=== PATIENT | male | born 1985 | race Caucasian/White ===

== ENCOUNTER 2018-09-10 14:33 | Emergency (ER) | payer MEDICARE, MEDICAID ==
[~2018-09-10] VITALS: Ht 175.3 cm; Wt 81.6 kg
[~2018-09-10 14:33] MED LIST: AMPH30CA3 PO; HYDR-4354 PO
[2018-09-10] MEDS ORDERED: ALBUTEROL SULFATE 2.5 MG/3 ML NEBU ONE (15:42)
[2018-09-10] MEDS ORDERED: IPRATROPIUM BROMIDE 0.5 MG/2.5 ML NEBU ONE (15:42)
[2018-09-10] MEDS ORDERED: ALBUTEROL SULFATE 2.5 MG/3 ML NEBU NEB ONE (15:45)
[2018-09-10] MEDS ORDERED: predniSONE 10 MG TABLET PO ONE (15:45)
[2018-09-10] MEDS ORDERED: IPRATROPIUM BROMIDE 0.5 MG/2.5 ML NEBU NEB ONE (15:45)
[2018-09-10] MEDS ORDERED: predniSONE 20 MG TABLET ONE (15:57)
--- NOTE | 2018-09-10 17:10 | NUR ---
Patient discharged to home in stable conditon. Written and verbal after care instructions given. Patient verbalizes understanding of instructions.PT SAYS FEELS BETTER, NO SIGN OF DISTRES.
[2018-09-10 17:11] VITALS: BP 121/71
== END 2018-09-10 17:14 | disposition home or self-care (01) ==
LOC: ER 14:34
DX: J45.909 Unspecified asthma, uncomplicated (principal); F17.200 Nicotine dependence, unspecified, uncomplicated; Z79.891 Long term (current) use of opiate analgesic; Z79.899 Other long term (current) drug therapy
CPT/HCPCS: 71045; 94644; 99285; J7512; A4663; J3590

== ENCOUNTER 2020-01-14 23:42 | Emergency (ER) | payer MEDICARE, OTHER ==
[~2020-01-14] VITALS: Ht 175.3 cm; Wt 95.3 kg
--- NOTE | 2020-01-15 00:41 | NUR ---
Dr. Boss at bedside for MSE.
--- NOTE | 2020-01-15 00:53 | NUR ---
Patient discharged to home in stable conditon. Written and verbal after care instructions given. Patient verbalizes understanding of instructions. Pt ambulated out of ER with steady gait, no acute signs of distress, VSS, all belongings taken.
[2020-01-15 00:54] VITALS: BP 115/86
== END 2020-01-15 00:54 | disposition home or self-care (01) ==
LOC: ER 23:47
DX: F11.23 Opioid dependence with withdrawal (principal); R11.10 Vomiting, unspecified; R19.7 Diarrhea, unspecified; F31.9 Bipolar disorder, unspecified; F17.200 Nicotine dependence, unspecified, uncomplicated; Z79.899 Other long term (current) drug therapy
CPT/HCPCS: A4663

== ENCOUNTER 2020-01-16 08:22 | Emergency (ER) | payer MEDICARE, OTHER ==
[~2020-01-16] VITALS: Ht 175.3 cm; Wt 90.7 kg
--- NOTE | 2020-01-16 08:26 | NUR ---
Dr Antonio at the bedside for MSE.
[2020-01-16] MEDS ORDERED: ALBUTEROL SULFATE 2.5 MG/3 ML NEBU NEB ONE (08:30)
[2020-01-16] MEDS ORDERED: methylPREDNISolone SOD SUCC 125 MG/2 ML VIAL IV ONE (08:30)
[2020-01-16] MEDS ORDERED: IV NORMAL SALINE 1000 ML BAG IV ONE (08:30)
[2020-01-16] MEDS ORDERED: IPRATROPIUM BROMIDE 0.5 MG/2.5 ML NEBU NEB ONE (08:30)
[2020-01-16] MEDS ORDERED: ALBUTEROL SULFATE 2.5 MG/3 ML NEBU ONE (08:34)
[2020-01-16] MEDS ORDERED: IPRATROPIUM BROMIDE 0.5 MG/2.5 ML NEBU ONE (08:34)
[2020-01-16] MEDS ORDERED: methylPREDNISolone SOD SUCC 125 MG/2 ML VIAL ONE (08:38)
[2020-01-16] MEDS ORDERED: ONDANSETRON 4 MG/2 ML VIAL ONE (08:40)
[2020-01-16] MEDS ORDERED: ONDANSETRON 4 MG/2 ML VIAL IV ONE (08:45)
[2020-01-16 09:07] LABS: BASOPHILS % (AUTO) 0.5 % (0.0-2.0); HEMATOCRIT 43.5 % (36.7-47.1); HEMOGLOBIN 13.6 g/dL (12.5-16.3); LYMPHOCYTES # (AUTO) 1.9 K/uL (20.0-40.0); LYMPHOCYTES % (AUTO) 20.2 % (20.5-51.5); MEAN CORPUSCULAR HEMOGLOBIN 21.1 uug (23.8-33.4); MEAN CORPUSCULAR HGB CONC 31 g/dL (32.5-36.3); MEAN CORPUSCULAR VOLUME 67.5 fL (73.0-96.2); MONOCYTES # (AUTO) 0.5 K/uL (2.0-10.0); NEUTROPHILS # (AUTO) 6.8 K/uL (1.8-8.9); NEUTROPHILS % (AUTO) 74.3 % (38.5-71.5); PLATELET COUNT (AUTO) 313 K/uL (152-348); RED BLOOD CELL COUNT(AUTO) 6.45 MIL/uL (4.06-5.63); WHITE BLOOD COUNT (AUTO) 9.2 K/uL (3.6-10.2)
[2020-01-16] MEDS ORDERED: CEFTRIAXONE 1 G in IV DEXTROSE 5% 50 ML IV ONE (09:30)
[2020-01-16] MEDS ORDERED: CEFTRIAXONE 1 G VIAL ONE (09:35)
[2020-01-16] MEDS ORDERED: AZITHROMYCIN 500 MG VIAL IV ONE (09:35)
[2020-01-16 09:42] LABS: LYMPHOCYTES % (MANUAL) 38 % (20-40); MONOCYTES % (MANUAL) 8 % (2-10); NEUTROPHILS % (MANUAL) 54 % (42-75)
[2020-01-16] MEDS: AZITHROMYCIN 250 MG TABLET PO ONE ×2 (10:03→10:06)
--- NOTE | 2020-01-16 10:08 | NUR ---
Pt is resting in bed, states feeling better. Room air 02 sat improved to 97%.
[2020-01-16] MEDS ORDERED: AZITHROMYCIN IV 500 MG in IV DEXTROSE 5% 250 ML IV ONE (10:15)
[2020-01-16 10:32] VITALS: BP 122/61
--- NOTE | 2020-01-16 10:33 | NUR ---
IV removed. Catheter intact and site benign. Pressure and 4x4 gauze applied to site. No bleeding noted.
--- NOTE | 2020-01-16 10:33 | NUR ---
Patient discharged to home in stable conditon. Written and verbal after care instructions given. Patient verbalizes understanding of instructions.
== END 2020-01-16 10:33 | disposition home or self-care (01) ==
LOC: ER 08:22
DX: J18.9 Pneumonia, unspecified organism (principal); J45.909 Unspecified asthma, uncomplicated; F31.9 Bipolar disorder, unspecified; F17.200 Nicotine dependence, unspecified, uncomplicated; Z79.899 Other long term (current) drug therapy
CPT/HCPCS: 36415; 71045; 80048; 84484; 85007; 85025; 87400; 93005; 94640; 96365; 96367; 96375; 99285; J0456; J0696; J2405; J2930; 70030-TC; A4663; J3490; J3590; J7030; J7050

== ENCOUNTER 2023-06-26 08:05 | Inpatient (IN) | payer MEDICARE, OTHER ==
[~2023-06-26] VITALS: Ht 175.3 cm; Wt 104.3 kg
[2023-06-26] VITALS (9 sets, daily range): BP systolic 132–140; BP diastolic 74–89; TEMP 97.7–98.4; O2SAT 4–100
[2023-06-26] MEDS ORDERED: methylPREDNISolone SOD SUCC 125 MG/2 ML VIAL IV ONE (08:45)
[2023-06-26] MEDS ORDERED: ALBUTEROL SULFATE 2.5 MG/3 ML NEBU ONE ×2 (08:45→09:54)
[2023-06-26] MEDS ORDERED: ALBUTEROL SULFATE 2.5 MG/3 ML NEBU NEB ONE ×2 (08:45→10:00)
[2023-06-26] MEDS ORDERED: IPRATROPIUM BROMIDE 0.5 MG/2.5 ML NEBU NEB ONE ×2 (08:45→10:00)
[2023-06-26] MEDS ORDERED: IPRATROPIUM BROMIDE 0.5 MG/2.5 ML NEBU ONE ×2 (08:45→09:54)
[2023-06-26 08:49] LABS: ABG BASE EXCESS 4.7 mmol/L; ABG HCO3 29.5 mmol/L; ABG PCO2 44.4 mmHg (35.0-45.0); ABG SITE RIGHT RADIAL; ABG TOTAL HEMOGLOBIN 11.9 G/dL (13.5-18.0); COHb 0.4 % (0.5-1.5); MetHb 0.2 % (0.0-1.5); O2Hb 93.2 % (94.0-97.0)
[2023-06-26] MEDS ORDERED: methylPREDNISolone SOD SUCC 125 MG/2 ML VIAL ONE (09:00)
[2023-06-26 09:23] LABS: BASOPHILS # (AUTO) 0.1 K/UL (0.0-0.2); BASOPHILS % (AUTO) 1.6 % (0.0-2.0); HEMATOCRIT 36.3 % (36.7-47.1); LYMPHOCYTES # (AUTO) 0.7 K/uL (0.8-4.8); LYMPHOCYTES % (AUTO) 8.4 % (20.5-51.5); MEAN CORPUSCULAR HEMOGLOBIN 20.5 uug (23.8-33.4); MEAN CORPUSCULAR HGB CONC 30 g/dL (32.5-36.3); MEAN CORPUSCULAR VOLUME 67.3 fL (73.0-96.2); MONOCYTES # (AUTO) 0.8 K/uL (0.1-1.30); NEUTROPHILS # (AUTO) 6.7 K/uL (1.8-8.9); PLATELET COUNT (AUTO) 314 K/uL (152-348); RED BLOOD CELL COUNT(AUTO) 5.39 MIL/uL (4.06-5.63); RED CELL DISTRIBUTION WIDTH 18.6 % (12.1-16.2); WHITE BLOOD COUNT (AUTO) 8.4 K/uL (3.6-10.2)
[2023-06-26 09:30] LABS: DIFFERENTIAL COMMENT 1
[2023-06-26 09:37] LABS: CALCIUM 8.6 mg/dL (8.5-10.1); CARBON DIOXIDE 30 mmol/L (21-32); CHLORIDE 103 mmol/L (98-107); CREATININE 0.9 mg/dL (0.6-1.3); GLUCOSE 119 mg/dL (74-106); POTASSIUM 4.8 mmol/L (3.5-5.1); SODIUM SERUM 139 mmol/L (136-145); UREA NITROGEN, BLOOD 11 mg/dL (7-18)
[2023-06-26] MEDS ORDERED: AMPH30TA3 PO (09:48)
[2023-06-26] MEDS ORDERED: HYDR-3980 PO (09:48)
[2023-06-26 09:50] LABS: ALANINE AMINOTRANSFERASE 79 U/L (16-63); ALBUMIN 3.5 g/dL (3.4-5.0); ALKALINE PHOSPHATASE 103 U/L (50-136); ASPARTATE AMINOTRANSFERASE 33 U/L (15-37); BILIRUBIN,DIRECT 0.2 mg/dL (0.0-0.2); BILIRUBIN,TOTAL 0.3 mg/dL (0.2-1.0); NT-PRO BNP 89 pg/mL (0-125); TOTAL PROTEIN, SERUM 7.6 g/dL (6.4-8.2)
[2023-06-26] MEDS ORDERED: HYDROCODONE/APAP 10-325 MG TABLET PO PRN (12:45)
[2023-06-26] MEDS ORDERED: ONDANSETRON 4 MG/2 ML VIAL IV PRN (12:45)
[2023-06-26] MEDS ORDERED: ACETAMINOPHEN 325 MG TABLET PO PRN (12:45)
[2023-06-26] MEDS: methylPREDNISolone SOD SUCC 40 MG/ML VIAL IV SCH ×2 (15:09→22:47)
[2023-06-26] MEDS: REMEDY ESSENTIAL ZINC PASTE 113 GM TOP SCH ×2 (17:13→21:10)
[2023-06-26] MEDS ORDERED: FLUV50TA3 PO (17:38)
[2023-06-26] MEDS ORDERED: buprenorphine SL (17:38)
[2023-06-26] MEDS ORDERED: METF-440 PO (17:38)
[2023-06-26] MEDS ORDERED: RISP2TAB85 PO (17:38)
[2023-06-26] MEDS ORDERED: PROP80CA51 PO (17:38)
[2023-06-26] MEDS ORDERED: CLOZ100T32 PO (17:38)
[2023-06-26] MEDS ORDERED: CLOZAPINE 100 MG TABLET PO SCH (21:00)
[2023-06-26] MEDS ORDERED: FLUVOXAMINE MALEATE 50 MG TABLET PO SCH (21:00)
[2023-06-26] MEDS ORDERED: PROPRANOLOL HCL 40 MG TABLET PO SCH (21:00)
[2023-06-26] MEDS: LEVALBUTEROL HCL NEB 0.63 MG/3 ML NEBU NEB PRN (21:03)
[2023-06-26] MEDS: METFORMIN HCL 500 MG TABLET PO SCH (21:10)
[2023-06-26] MEDS: risperiDONE 2 MG TABLET PO SCH (21:10)
[2023-06-26] MEDS: BUPRENORPHINE HCL 2 MG TAB.SUBL SL SCH (21:16)
[2023-06-27] VITALS (12 sets, daily range): BP systolic 107–148; BP diastolic 73–92; TEMP 97.1–97.8; O2SAT 20–99
[2023-06-27] MEDS: methylPREDNISolone SOD SUCC 40 MG/ML VIAL IV SCH ×2 (06:23→21:19)
[2023-06-27] MEDS: PANTOPRAZOLE SODIUM 40 MG TABLET.DR PO SCH (06:23)
[2023-06-27 06:33] LABS: BASOPHILS % (AUTO) 0.2 % (0.0-2.0); HEMATOCRIT 34.5 % (36.7-47.1); HEMOGLOBIN 10.7 g/dL (12.5-16.3); LYMPHOCYTES % (AUTO) 9.1 % (20.5-51.5); MEAN CORPUSCULAR HEMOGLOBIN 20.7 uug (23.8-33.4); MEAN CORPUSCULAR HGB CONC 31 g/dL (32.5-36.3); MEAN CORPUSCULAR VOLUME 66.9 fL (73.0-96.2); MONOCYTES # (AUTO) 0.3 K/uL (0.1-1.30); MONOCYTES % (AUTO) 2.7 % (0.0-11.0); NEUTROPHILS # (AUTO) 9.3 K/uL (1.8-8.9); PLATELET COUNT (AUTO) 334 K/uL (152-348); RED BLOOD CELL COUNT(AUTO) 5.17 MIL/uL (4.06-5.63); RED CELL DISTRIBUTION WIDTH 18.5 % (12.1-16.2); WHITE BLOOD COUNT (AUTO) 10.5 K/uL (3.6-10.2)
[2023-06-27] MEDS: LEVALBUTEROL HCL NEB 0.63 MG/3 ML NEBU NEB PRN ×2 (06:34→13:41)
[2023-06-27 06:47] LABS: DIFFERENTIAL COMMENT 1
[2023-06-27 07:04] LABS: THYROID STIMULATING HORMONE 0.091 mIU/mL (0.358-3.740)
[2023-06-27 07:13] LABS: ALBUMIN 3.4 g/dL (3.4-5.0); BILIRUBIN,TOTAL 0.2 mg/dL (0.2-1.0); CALCIUM 8.7 mg/dL (8.5-10.1); CREATININE 0.9 mg/dL (0.6-1.3); PHOSPHOROUS 2.8 mg/dL (2.5-4.9); TOTAL PROTEIN, SERUM 7.7 g/dL (6.4-8.2)
[2023-06-27] MEDS: NICOTINE 14 MG/24HR PATCH TD SCH (08:52)
[2023-06-27] MEDS: METFORMIN HCL 500 MG TABLET PO SCH ×2 (08:53→17:36)
[2023-06-27 08:55] LABS: IRON, SERUM 26 ug/dL (50-175)
[2023-06-27] MEDS: REMEDY ESSENTIAL ZINC PASTE 113 GM TOP SCH ×2 (08:55→21:21)
[2023-06-27] MEDS: BUPRENORPHINE HCL 2 MG TAB.SUBL SL SCH ×2 (08:55→17:35)
[2023-06-27] MEDS: INDERAL 80 MG PO SCH (08:55)
[2023-06-27] MEDS ORDERED: AMPHET ASP PO SCH (09:00)
[2023-06-27] MEDS ORDERED: AMPHET PO SCH (09:00)
[2023-06-27] MEDS ORDERED: [UNRECOGNIZED DRUG - OTHER] PO SCH (09:00)
[2023-06-27] MEDS ORDERED: D AMPHET PO SCH (09:00)
[2023-06-27] MEDS: IPRATROPIUM BROMIDE 0.5 MG/2.5 ML NEBU NEB SCH ×2 (15:30→19:56)
[2023-06-27] MEDS: ALBUTEROL SULFATE 2.5 MG/3 ML NEBU NEB SCH ×2 (15:30→19:56)
[2023-06-27] MEDS ORDERED: CLOZAPINE 100 MG TABLET PO SCH (21:00)
[2023-06-27] MEDS: risperiDONE 2 MG TABLET PO SCH (21:19)
[2023-06-28] VITALS (7 sets, daily range): BP systolic 105–127; BP diastolic 58–81; TEMP 97.9–98; O2SAT 98–100
[2023-06-28] MEDS: PANTOPRAZOLE SODIUM 40 MG TABLET.DR PO SCH (06:04)
[2023-06-28 06:43] LABS: HEMOGLOBIN 9.6 g/dL (12.5-16.3); LYMPHOCYTES # (AUTO) 0.7 K/uL (0.8-4.8); LYMPHOCYTES % (AUTO) 6.7 % (20.5-51.5); MEAN CORPUSCULAR HGB CONC 30 g/dL (32.5-36.3); MEAN CORPUSCULAR VOLUME 66.9 fL (73.0-96.2); MONOCYTES # (AUTO) 0.5 K/uL (0.1-1.30); MONOCYTES % (AUTO) 4.6 % (0.0-11.0); NEUTROPHILS # (AUTO) 9.8 K/uL (1.8-8.9); NEUTROPHILS % (AUTO) 88.7 % (38.5-71.5); PLATELET COUNT (AUTO) 329 K/uL (152-348); RED BLOOD CELL COUNT(AUTO) 4.78 MIL/uL (4.06-5.63); RED CELL DISTRIBUTION WIDTH 18.7 % (12.1-16.2)
[2023-06-28 06:54] LABS: CALCIUM 8.1 mg/dL (8.5-10.1); CREATININE 0.7 mg/dL (0.6-1.3); POTASSIUM 4.4 mmol/L (3.5-5.1)
[2023-06-28 06:59] LABS: DIFFERENTIAL COMMENT 1
[2023-06-28] MEDS ORDERED: ALBUTEROL SULFATE 1.25 MG/3 ML NEBU NEB PRN (07:30)
[2023-06-28] MEDS: ALBUTEROL SULFATE 2.5 MG/3 ML NEBU NEB SCH ×2 (07:49→11:13)
[2023-06-28] MEDS: IPRATROPIUM BROMIDE 0.5 MG/2.5 ML NEBU NEB SCH ×2 (07:49→11:13)
[2023-06-28] MEDS ORDERED: ALBU8.5H8 IH (08:29)
[2023-06-28] MEDS ORDERED: METH4TAB3 PO (08:29)
[2023-06-28] MEDS ORDERED: FERR325T28 PO (08:35)
[2023-06-28] MEDS: methylPREDNISolone SOD SUCC 40 MG/ML VIAL IV SCH (08:50)
[2023-06-28] MEDS: NICOTINE 14 MG/24HR PATCH TD SCH (08:51)
[2023-06-28] MEDS: INDERAL 80 MG PO SCH (08:51)
[2023-06-28] MEDS: BUPRENORPHINE HCL 2 MG TAB.SUBL SL SCH (08:51)
[2023-06-28] MEDS: METFORMIN HCL 500 MG TABLET PO SCH (08:51)
[2023-06-28] MEDS: REMEDY ESSENTIAL ZINC PASTE 113 GM TOP SCH (08:53)
[2023-06-28] MEDS ORDERED: FERROUS SULFATE 325 MG TABEC PO SCH (09:00)
[2023-06-28] MEDS ORDERED: FLUVOXAMINE MALEATE 50 MG TABLET PO SCH (09:00)
== END 2023-06-28 11:45 | disposition home or self-care (01) | DRG 202 ==
LOC: ER 08:05 → TELE3 12:10
PROVIDERS: ADMIT Internal Medicine; ATTEND Nurse Practitioner Acute Care
DX: J45.21 Mild intermittent asthma with (acute) exacerbation (principal); J96.01 Acute respiratory failure with hypoxia; Z20.822 Contact with and (suspected) exposure to COVID-19; Z68.34 Body mass index [BMI] 34.0-34.9, adult; D50.9 Iron deficiency anemia, unspecified; Z59.00 Homelessness unspecified; Z86.711 Personal history of pulmonary embolism; F17.210 Nicotine dependence, cigarettes, uncomplicated; G47.33 Obstructive sleep apnea (adult) (pediatric); E11.9 Type 2 diabetes mellitus without complications; Z71.6 Tobacco abuse counseling; Z71.3 Dietary counseling and surveillance; Z79.84 Long term (current) use of oral hypoglycemic drugs; B36.9 Superficial mycosis, unspecified; F25.0 Schizoaffective disorder, bipolar type; B34.9 Viral infection, unspecified; E66.9 Obesity, unspecified; Z79.899 Other long term (current) drug therapy; K50.90 Crohn's disease, unspecified, without complications
CPT/HCPCS: 36415; 36600; 71045; 83550; 83605; 83735; 84100; 84443; 84484; 85025; 87040; 93005; 94640; 94760; A4663; G0378; J2920; J2930; J3590; J7614

== ENCOUNTER 2023-09-07 06:34 | Inpatient (IN) | payer MEDICARE, OTHER ==
[2023-09-07] VITALS (7 sets, daily range): BP systolic 111–133; BP diastolic 73–84; TEMP 97.8–98.9; O2SAT 95–98
[~2023-09-07] VITALS: Ht 175.3 cm; Wt 99.8 kg
[~2023-09-07 06:34] MED LIST changes: +ALBU8.5H8 IH; -AMPH30CA3 PO; +CLOZ100T32 PO; +FERR325T28 PO; +FLUV50TA3 PO; +HYDR-3980 PO; -HYDR-4354 PO; +METF-440 PO; +METH4TAB3 PO; +PROP80CA51 PO; +RISP2TAB85 PO; +buprenorphine SL
[2023-09-07] MEDS ORDERED: methylPREDNISolone SOD SUCC 125 MG/2 ML VIAL IV ONE (07:15)
[2023-09-07] MEDS ORDERED: IPRATROPIUM BROMIDE 0.5 MG/2.5 ML NEBU NEB ONE (07:15)
[2023-09-07] MEDS ORDERED: IV NORMAL SALINE 1000 ML BAG IV ONE ×2 (07:15→08:15)
[2023-09-07] MEDS ORDERED: ALBUTEROL SULFATE 2.5 MG/3 ML NEBU NEB ONE (07:15)
[2023-09-07] MEDS ORDERED: MAGNESIUM SULFATE 2 GM in IV DEXTROSE 5% 100 ML IV ONE (07:15)
[2023-09-07] MEDS ORDERED: ALBUTEROL SULFATE 2.5 MG/3 ML NEBU ONE (07:22)
[2023-09-07] MEDS ORDERED: IPRATROPIUM BROMIDE 0.5 MG/2.5 ML NEBU ONE (07:22)
[2023-09-07] MEDS ORDERED: MAGNESIUM SULFATE/D5W 100 ML ONE (07:30)
[2023-09-07] MEDS ORDERED: methylPREDNISolone SOD SUCC 125 MG/2 ML VIAL ONE (07:30)
[2023-09-07 07:34] LABS: BASOPHILS % (AUTO) 0.3 % (0.0-2.0); HEMATOCRIT 35.8 % (36.7-47.1); HEMOGLOBIN 10.8 g/dL (12.5-16.3); LYMPHOCYTES # (AUTO) 0.6 K/uL (0.8-4.8); LYMPHOCYTES % (AUTO) 9.2 % (20.5-51.5); MEAN CORPUSCULAR HEMOGLOBIN 19.5 uug (23.8-33.4); MEAN CORPUSCULAR HGB CONC 30 g/dL (32.5-36.3); MEAN CORPUSCULAR VOLUME 64.7 fL (73.0-96.2); MONOCYTES # (AUTO) 0.2 K/uL (0.1-1.30); MONOCYTES % (AUTO) 3.5 % (0.0-11.0); NEUTROPHILS # (AUTO) 6.1 K/uL (1.8-8.9); PLATELET COUNT (AUTO) 447 K/uL (152-348); RED BLOOD CELL COUNT(AUTO) 5.54 MIL/uL (4.06-5.63); WHITE BLOOD COUNT (AUTO) 7.1 K/uL (3.6-10.2)
[2023-09-07 07:47] LABS: DIFFERENTIAL COMMENT 1
[2023-09-07 07:50] LABS: CALCIUM 9.1 mg/dL (8.5-10.1); CARBON DIOXIDE 27 mmol/L (21-32); CHLORIDE 102 mmol/L (98-107); GLUCOSE 133 mg/dL (74-106); POTASSIUM 4.5 mmol/L (3.5-5.1); SODIUM SERUM 139 mmol/L (136-145); UREA NITROGEN, BLOOD 9 mg/dL (7-18)
[2023-09-07 07:52] LABS: ABG BASE EXCESS 0.7 mmol/L; ABG HCO3 25.7 mmol/L; ABG PCO2 42.4 mmHg (35.0-45.0); ABG PO2 90.7 mmHg (75.0-100.0); ABG SITE RIGHT RADIAL; ABG TOTAL HEMOGLOBIN 12.2 G/dL (13.5-18.0); COHb 0.7 % (0.5-1.5); MetHb 0.1 % (0.0-1.5); O2Hb 96.5 % (94.0-97.0)
[2023-09-07 07:58] LABS: LACTIC ACID 2.9 mmol/L (0.4-2.0)
[2023-09-07 08:03] LABS: ALANINE AMINOTRANSFERASE 71 U/L (16-63); ALBUMIN 3.4 g/dL (3.4-5.0); ALKALINE PHOSPHATASE 88 U/L (50-136); ASPARTATE AMINOTRANSFERASE 33 U/L (15-37); BILIRUBIN,DIRECT 0.1 mg/dL (0.0-0.2); BILIRUBIN,TOTAL 0.4 mg/dL (0.2-1.0); NT-PRO BNP 75 pg/mL (0-125); TOTAL PROTEIN, SERUM 7.2 g/dL (6.4-8.2)
[2023-09-07] MEDS ORDERED: AZITHROMYCIN 250 MG TABLET PO ONE (08:15)
[2023-09-07] MEDS ORDERED: CEFTRIAXONE 1 G in IV DEXTROSE 5% 50 ML IV ONE (08:15)
[2023-09-07] MEDS ORDERED: CEFTRIAXONE /D5W 50ML IVPB **ER PYXIS IV ONE (08:44)
[2023-09-07] MEDS ORDERED: AZITHROMYCIN 250 MG TABLET ONE (08:44)
[2023-09-07] MEDS ORDERED: IV NORMAL SALINE 250 ML IV ONE (09:19)
[2023-09-07] MEDS ORDERED: SWABABLE VALVE TRANSFER SET EA MC ONE (09:19)
[2023-09-07] MEDS ORDERED: IOHEXOL 350 100 ML INFUS..BTL ONE (09:19)
[2023-09-07] MEDS ORDERED: MAGNESIUM HYDROXIDE 30 ML LIQUID UDC PO PRN (12:15)
[2023-09-07] MEDS ORDERED: ONDANSETRON 4 MG/2 ML VIAL IV PRN (12:15)
[2023-09-07] MEDS ORDERED: ALBUTEROL SULFATE 2.5 MG/ 0.5 ML NEBU NEB PRN (12:15)
[2023-09-07] MEDS ORDERED: ACETAMINOPHEN 325 MG TABLET PO PRN (12:15)
[2023-09-07] MEDS ORDERED: REMEDY ESSENTIAL ZINC PASTE 113 GM TP PRN (12:15)
[2023-09-07] MEDS ORDERED: IPRATROPIUM BROMIDE 0.5 MG/2.5 ML NEBU NEB PRN (12:15)
[2023-09-07] MEDS: methylPREDNISolone SOD SUCC 40 MG/ML VIAL IV SCH ×2 (14:07→21:04)
[2023-09-07] MEDS: ENOXAPARIN SODIUM 40 MG/0.4 ML DISP.SYRIN SQ SCH (14:07)
[2023-09-07] MEDS ORDERED: FLUO40CA49 PO (15:35)
[2023-09-07] MEDS: NICOTINE 21 MG/24HR PATCH TD SCH (15:45)
[2023-09-08] VITALS (8 sets, daily range): BP systolic 102–135; BP diastolic 55–85; TEMP 97.5–98.3; O2SAT 94–99
[2023-09-08] MEDS: methylPREDNISolone SOD SUCC 40 MG/ML VIAL IV SCH ×3 (05:19→23:32)
[2023-09-08 06:52] LABS: HEMATOCRIT 32.3 % (36.7-47.1); HEMOGLOBIN 9.6 g/dL (12.5-16.3); LYMPHOCYTES # (AUTO) 0.6 K/uL (0.8-4.8); LYMPHOCYTES % (AUTO) 4.3 % (20.5-51.5); MEAN CORPUSCULAR HEMOGLOBIN 18.9 uug (23.8-33.4); MEAN CORPUSCULAR HGB CONC 30 g/dL (32.5-36.3); MEAN CORPUSCULAR VOLUME 63.9 fL (73.0-96.2); MONOCYTES # (AUTO) 0.4 K/uL (0.1-1.30); MONOCYTES % (AUTO) 2.6 % (0.0-11.0); NEUTROPHILS # (AUTO) 13.5 K/uL (1.8-8.9); NEUTROPHILS % (AUTO) 93.1 % (38.5-71.5); PLATELET COUNT (AUTO) 373 K/uL (152-348); RED BLOOD CELL COUNT(AUTO) 5.05 MIL/uL (4.06-5.63); RED CELL DISTRIBUTION WIDTH 17.8 % (12.1-16.2); WHITE BLOOD COUNT (AUTO) 14.5 K/uL (3.6-10.2)
[2023-09-08 07:06] LABS: DIFFERENTIAL COMMENT 1
[2023-09-08 07:29] LABS: ALBUMIN 3.1 g/dL (3.4-5.0); BILIRUBIN,TOTAL 0.3 mg/dL (0.2-1.0); CREATININE 0.8 mg/dL (0.6-1.3); MAGNESIUM 2.3 mg/dL (1.8-2.4); PHOSPHOROUS 2.6 mg/dL (2.5-4.9); POTASSIUM 3.9 mmol/L (3.5-5.1); TOTAL PROTEIN, SERUM 7.2 g/dL (6.4-8.2)
[2023-09-08] MEDS: NICOTINE 21 MG/24HR PATCH TD SCH (08:31)
[2023-09-08] MEDS: AZITHROMYCIN IV 500 MG in IV DEXTROSE 5% 250 ML IV SCH (08:32)
[2023-09-08] MEDS: PROTEIN SUPPLEMENT (PROSTAT) 30 ML LIQUID PO SCH ×2 (08:33→17:01)
[2023-09-08] MEDS: CEFTRIAXONE 1 G in IV DEXTROSE 5% 50 ML IV SCH (10:12)
[2023-09-08 11:24] LABS: BAND % (MANUAL) 6 % (0-10); LYMPHOCYTES % (MANUAL) 4 % (20-40); MONOCYTES % (MANUAL) 2 % (2-10); NEUTROPHILS % (MANUAL) 88 % (42-75); PLATELET ESTIMATE ADEQUATE
[2023-09-08 11:25] LABS: ANISOCYTOSIS 1+; HYPOCHROMASIA 2+
[2023-09-08] MEDS: ENOXAPARIN SODIUM 40 MG/0.4 ML DISP.SYRIN SQ SCH (12:31)
[2023-09-08] MEDS: BUPRENORPHINE HCL 2 MG TAB.SUBL SL SCH ×3 (13:00→17:36)
[2023-09-08] MEDS: FLUVOXAMINE MALEATE 50 MG TABLET PO SCH (16:15)
[2023-09-08] MEDS: FERROUS SULFATE 325 MG TABEC PO SCH (16:15)
[2023-09-08] MEDS ORDERED: risperiDONE 2 MG TABLET PO SCH (21:00)
[2023-09-08] MEDS ORDERED: CLOZAPINE 100 MG TABLET PO SCH (21:00)
[2023-09-09 04:05] VITALS: BP 99/64; TEMP 96.8; O2SAT 98
[2023-09-09 04:11] VITALS: O2SAT 98
[2023-09-09] MEDS: methylPREDNISolone SOD SUCC 40 MG/ML VIAL IV SCH (06:12)
[2023-09-09] MEDS ORDERED: METFORMIN HCL 500 MG TABLET PO SCH (08:00)
[2023-09-09 08:46] VITALS: BP 133/77
[2023-09-09] MEDS: FERROUS SULFATE 325 MG TABEC PO SCH (08:46)
[2023-09-09] MEDS: BUPRENORPHINE HCL 2 MG TAB.SUBL SL SCH (08:46)
[2023-09-09] MEDS: NICOTINE 21 MG/24HR PATCH TD SCH (08:47)
[2023-09-09] MEDS: FLUVOXAMINE MALEATE 50 MG TABLET PO SCH (08:47)
[2023-09-09] MEDS: PROTEIN SUPPLEMENT (PROSTAT) 30 ML LIQUID PO SCH (08:47)
[2023-09-09] MEDS ORDERED: PROPRANOLOL HCL 40 MG TABLET PO SCH ×2 (09:00)
[2023-09-09] MEDS ORDERED: FLUOXETINE HCL 20 MG CAPSULE PO SCH (09:00)
[2023-09-09] MEDS ORDERED: PROPRANOLOL LA 80 MG CAP.SA.24H PO SCH ×2 (09:00)
[2023-09-09] MEDS ORDERED: AMOX-430 PO (09:07)
[2023-09-09] MEDS ORDERED: AZIT500T4 PO (09:07)
[2023-09-09] MEDS ORDERED: METH4TAB3 PO (09:07)
[2023-09-09] MEDS ORDERED: FLUT1BLS4 IH (09:07)
[2023-09-09] MEDS: AZITHROMYCIN IV 500 MG in IV DEXTROSE 5% 250 ML IV SCH (09:38)
[2023-09-09] MEDS: CEFTRIAXONE 1 G in IV DEXTROSE 5% 50 ML IV SCH (10:14)
== END 2023-09-09 11:00 | disposition home or self-care (01) | DRG 193 ==
LOC: ER 06:46 → TRANSITION 09:51 → TELE3 10:46 → MEDSURG3 09-08 13:55
PROVIDERS: ADMIT Internal Medicine; ATTEND Internal Medicine
DX: J18.9 Pneumonia, unspecified organism (principal); J96.01 Acute respiratory failure with hypoxia; J45.901 Unspecified asthma with (acute) exacerbation; K50.90 Crohn's disease, unspecified, without complications; E66.01 Morbid (severe) obesity due to excess calories; Z68.32 Body mass index [BMI] 32.0-32.9, adult; Z20.822 Contact with and (suspected) exposure to COVID-19; F25.9 Schizoaffective disorder, unspecified; E11.9 Type 2 diabetes mellitus without complications; Z79.84 Long term (current) use of oral hypoglycemic drugs; F31.9 Bipolar disorder, unspecified; R79.1 Abnormal coagulation profile; F11.10 Opioid abuse, uncomplicated
CPT/HCPCS: 36415; 36600; 70030-TC; 71045; 71275; 83605; 83735; 84100; 84484; 85025; 87040; 93005; 94640; 94664; A4606; A4663; G0378; J0456; J0696; J1650; J2920; J2930; J3475; J3590; J7040; J7050; J8499; Q0144; Q9967

== ENCOUNTER 2023-12-15 07:25 | Emergency (ER) | payer MEDICARE, OTHER ==
[~2023-12-15] VITALS: Ht 175.3 cm; Wt 99.8 kg
[~2023-12-15 07:25] MED LIST changes: +AMOX-430 PO; +AZIT500T4 PO; +FLUO40CA49 PO; +FLUT1BLS4 IH; -HYDR-3980 PO; -buprenorphine SL
[2023-12-15] MEDS ORDERED: predniSONE 50 MG TABLET ONE (08:08)
[2023-12-15] MEDS ORDERED: predniSONE 10 MG TABLET ONE (08:09)
[2023-12-15] MEDS: predniSONE 10 MG TABLET PO ONE (08:11)
[2023-12-15] MEDS ORDERED: MAGNESIUM SULFATE/D5W 200 ML ONE (08:20)
[2023-12-15] MEDS: MAGNESIUM SULFATE 2 GM in IV DEXTROSE 5% 100 ML IV ONE (08:31)
[2023-12-15 08:33] LABS: BASOPHILS # (AUTO) 0.1 K/UL (0.0-0.2); BASOPHILS % (AUTO) 0.6 % (0.0-2.0); HEMATOCRIT 37.5 % (36.7-47.1); HEMOGLOBIN 11.4 g/dL (12.5-16.3); LYMPHOCYTES # (AUTO) 0.9 K/uL (0.8-4.8); LYMPHOCYTES % (AUTO) 8.5 % (20.5-51.5); MEAN CORPUSCULAR HEMOGLOBIN 19.3 uug (23.8-33.4); MEAN CORPUSCULAR HGB CONC 30 g/dL (32.5-36.3); MEAN CORPUSCULAR VOLUME 63.4 fL (73.0-96.2); MONOCYTES # (AUTO) 0.9 K/uL (0.1-1.30); MONOCYTES % (AUTO) 9.4 % (0.0-11.0); NEUTROPHILS # (AUTO) 8.3 K/uL (1.8-8.9); NEUTROPHILS % (AUTO) 81.5 % (38.5-71.5); PLATELET COUNT (AUTO) 289 K/uL (152-348); RED BLOOD CELL COUNT(AUTO) 5.91 MIL/uL (4.06-5.63); RED CELL DISTRIBUTION WIDTH 21.2 % (12.1-16.2); WHITE BLOOD COUNT (AUTO) 10.1 K/uL (3.6-10.2)
[2023-12-15 08:40] VITALS: O2SAT 95; O2SAT 99
[2023-12-15 08:41] LABS: MAGNESIUM 1.9 mg/dL (1.8-2.4)
[2023-12-15] MEDS ORDERED: IPRATROPIUM BROMIDE 0.5 MG/2.5 ML NEBU ONE (08:41)
[2023-12-15] MEDS ORDERED: ALBUTEROL SULFATE 2.5 MG/3 ML NEBU ONE (08:41)
[2023-12-15 08:42] LABS: DIFFERENTIAL COMMENT 1
[2023-12-15] MEDS: ALBUTEROL SULFATE 2.5 MG/3 ML NEBU NEB ONE (08:48)
[2023-12-15] MEDS: IPRATROPIUM BROMIDE 0.5 MG/2.5 ML NEBU NEB ONE (08:48)
[2023-12-15 09:09] LABS: CALCIUM 8.8 mg/dL (8.5-10.1); CARBON DIOXIDE 28 mmol/L (21-32); CHLORIDE 101 mmol/L (98-107); CREATININE 0.9 mg/dL (0.6-1.3); GLUCOSE 119 mg/dL (74-106); POTASSIUM 4.5 mmol/L (3.5-5.1); SODIUM SERUM 139 mmol/L (136-145); UREA NITROGEN, BLOOD 12 mg/dL (7-18)
[2023-12-15 09:18] LABS: ALANINE AMINOTRANSFERASE 72 U/L (16-63); ALBUMIN 3.7 g/dL (3.4-5.0); ALKALINE PHOSPHATASE 122 U/L (50-136); ASPARTATE AMINOTRANSFERASE 29 U/L (15-37); BILIRUBIN,DIRECT 0.1 mg/dL (0.0-0.2); BILIRUBIN,TOTAL 0.4 mg/dL (0.2-1.0); TOTAL PROTEIN, SERUM 7.7 g/dL (6.4-8.2)
[2023-12-15] MEDS ORDERED: FERR89TA PO (10:23)
[2023-12-15] MEDS ORDERED: ALBU2.5V13 NEB (10:23)
[2023-12-15] MEDS ORDERED: NEBU-171 MC (10:23)
[2023-12-15] MEDS ORDERED: ALBU18HF2 IH (10:23)
[2023-12-15 11:07] VITALS: BP 112/80; TEMP 98; O2SAT 99
== END 2023-12-15 10:37 | disposition home or self-care (01) ==
LOC: ER 07:25
DX: J45.909 Unspecified asthma, uncomplicated (principal); D50.9 Iron deficiency anemia, unspecified; E88.810 Metabolic syndrome; F31.9 Bipolar disorder, unspecified; F20.9 Schizophrenia, unspecified; F17.200 Nicotine dependence, unspecified, uncomplicated; Z79.899 Other long term (current) drug therapy; Z91.010 Allergy to peanuts
CPT/HCPCS: 99285; 96365; 71045; 96366; 80076; 80048; 83036; 83550; 83735; 85025; 85379; 84484; 36415; 93005; J7512 ×2; J3475 ×2; J7040; A4606; A4663; J3590

== ENCOUNTER 2025-05-12 02:02 | Emergency (ER) | payer MEDICARE, OTHER ==
[~2025-05-12] VITALS: Ht 172.7 cm; Wt 97.5 kg
[~2025-05-12 02:02] MED LIST changes: +ALBU18HF2 IH; +ALBU2.5V13 NEB; +FERR89TA PO; +NEBU-171 MC
[2025-05-12 02:35] LABS: PLATELET COUNT (AUTO) 364 K/uL (152-348); RED BLOOD CELL COUNT(AUTO) 6.41 MIL/uL (4.06-5.63); RED CELL DISTRIBUTION WIDTH 17.1 % (12.1-16.2); WHITE BLOOD COUNT (AUTO) 6.9 K/uL (3.6-10.2)
[2025-05-12] MEDS ORDERED: ONDANSETRON 4 MG/2 ML VIAL ONE (02:38)
[2025-05-12] MEDS ORDERED: MAG HYDROX/AL HYDROX/SIMETH 30 ML LIQUID UDC ONE (02:38)
[2025-05-12] MEDS ORDERED: FAMOTIDINE. 20 MG/2 ML VIAL IV ONE (02:39)
[2025-05-12] MEDS: IV NORMAL SALINE 1000 ML BAG IV ONE (02:40)
[2025-05-12] MEDS: FAMOTIDINE. 20 MG/2 ML VIAL IV ONE (02:40)
[2025-05-12 02:41] LABS: CREATININE 0.9 mg/dL (0.6-1.3); SODIUM SERUM 141 mmol/L (136-145); UREA NITROGEN, BLOOD 10 mg/dL (7-18)
[2025-05-12] MEDS: MAG HYDROX/AL HYDROX/SIMETH 30 ML LIQUID UDC PO ONE (02:41)
[2025-05-12] MEDS: ONDANSETRON 4 MG/2 ML VIAL IV ONE (02:41)
[2025-05-12 02:46] LABS: ASPARTATE AMINOTRANSFERASE 18 U/L (15-37); TOTAL PROTEIN, SERUM 7.6 g/dL (6.4-8.2)
[2025-05-12 03:00] LABS: LYMPHOCYTES % (MANUAL) 24 % (20-40); MONOCYTES % (MANUAL) 7 % (2-10); NEUTROPHILS % (MANUAL) 69 % (42-75); PLATELET ESTIMATE ADEQUATE
[2025-05-12] MEDS ORDERED: KETOROLAC TROMETHAMINE 30 MG INJ ONE (03:04)
[2025-05-12] MEDS: KETOROLAC TROMETHAMINE 30 MG INJ IVP ONE (03:12)
[2025-05-12 06:48] VITALS: BP 111/69; TEMP 98; O2SAT 97
== END 2025-05-12 06:50 | disposition home or self-care (01) ==
LOC: ER 02:09
DX: K50.00 Crohn's disease of small intestine without complications (principal); R91.8 Other nonspecific abnormal finding of lung field; R10.13 Epigastric pain; R11.0 Nausea; F17.200 Nicotine dependence, unspecified, uncomplicated; F25.9 Schizoaffective disorder, unspecified; F31.9 Bipolar disorder, unspecified; J45.909 Unspecified asthma, uncomplicated; Z79.51 Long term (current) use of inhaled steroids; Z79.84 Long term (current) use of oral hypoglycemic drugs; Z79.899 Other long term (current) drug therapy; Z88.7 Allergy status to serum and vaccine; Z91.010 Allergy to peanuts
CPT/HCPCS: 99285; 74176; 96374; 96375; 96361; 80076; 80048; 83690; 85007; 85027; 36415; J1885; J1308; J2405; J7040; 70030-TC; A4606; A4663